=== PATIENT | female | born 1985 | race Caucasian/White ===

== ENCOUNTER 2016-11-13 16:19 | Emergency (ER) | payer OTHER ==
[~2016-11-13] VITALS: Ht 160 cm; Wt 117.9 kg
[2016-11-13 16:22] VITALS: BP 163/84
--- NOTE | 2016-11-13 16:39 | ED NECK/BACK PAIN COMPLAINT ---
History of Present Illness General Chief Complaint: Low Back Pain/Injury Stated Complaint: R SIDED GROIN/BACK PAIN Source: patient Exam Limitations: no limitations Vital Signs & Intake/Output Vital Signs & Intake/Output Vital Signs Date Time Temp Pulse Resp B/P Pulse O2 O2 Flow FiO2 Ox Delivery Rate 11/13 1622 96.2 106 20 163/84 96 Room Air Allergies Coded Allergies: MDX - Ciprofloxacin (From [facility]) (UPSET STOMACH 12/12/12) Reconcile Medications Cyclobenzaprine HCl 10 MG TABLET 1 TAB PO TID PRN MUSCLE RELAXANT MAY CAUSE DROWSINESS Tramadol HCl 50 MG TABLET 1-2 TAB PO Q6 PRN pain Triage Note: PT TO ED C/O LOWER BACK PAIN RADIATING TO RIGHT GROIN X 3 WEEKS. DENIES ANY OBVIOUS RECENT INJURY. HAS BEEN TAKING MOTRIN WITH SOME RELIEF. DENIES S/S. PAIN IS WORSE WITH STANDING. Triage Nurses Notes Reviewed? yes : No Patient currently breastfeeds: No HPI: Patient is a 31-year-old female presents complaining of right low back pain radiating into her right groin and right lower extremity. Pain onset 3 weeks ago. Patient has had similar episodes in the past, her episodes normally improve after approximately 3 days but this pain has persisted. Patient reports that his episodes began after [place] one year [place]. Patient was seen at [facility] yesterday, had x-rays was placed on anti-inflammatories (patient is unsure of the name of the medication) and was scheduled for follow-up on November 24. Patient reports she has been taking the anti-inflammatory medication with no improvement. Pain is a pulling sensation improves with sitting, worsens with movement. Pain is currently moderate to severe. Patient denies dysuria, hematuria, numbness, weakness, recent falls or injuries (CHIKIS ZENG) Past History Travel History Traveled to [place] past 21 day No Medical History Any Pertinent Medical History? see below for history Cardiovascular: hypertension Surgical History Surgical History: non-contributory Psychosocial History What is your primary language Scottish Tobacco Use: Current Daily Use Daily Tobacco Use Amount/Type: => 5 Cigarettes daily ETOH Use: denies use Illicit Drug Use: denies illicit drug use Family History Hx Contributory? No (CHIKIS ZENG) Review of Systems Review of Systems Constitutional: Denies: chills, fever. Eyes: Reports: no symptoms. Ears, Nose, Throat, Mouth: Reports: no symptoms. Respiratory: Denies: cough, short of breath. Cardiovascular: Denies: chest pain. Gastrointestinal/Abdominal: Denies: abdominal pain, other (no incontinence). Musculoskeletal: Reports: see HPI. Skin: Reports: no symptoms. Neurological/Psychological: Denies: numbness, paresthesia. (CHIKIS ZENG) Physical Exam Physical Exam General Appearance: well developed/nourished, alert, awake Head: atraumatic, normal appearance Eyes: Bilateral: normal appearance. Ears, Nose, Throat, Mouth: hearing grossly normal, moist mucous membrane Neck: normal inspection, supple, full range of motion Respiratory: normal breath sounds, no respiratory distress, lungs clear Cardiovascular: tachycardia (regular rhythm, no murmur) Peripheral Pulses: 2+ dorsalis pedis (R), 2+ dorsalis pedis (L) Gastrointestinal: soft, non-tender Back: normal inspection, normal range of motion, no vertebral tenderness, right paraspinal tenderness with mild spasm of the right paraspinal lumbar muscles. Extremities: non-tender, normal range of motion Straight Leg Raising: Right: Negative. Left: Negative. DTR: Patellar: 2: L4 Right, L4 Left. Achilles: 2: S1 Right, S1 Left. Neurologic/Psych: no motor/sensory deficits, awake, alert, oriented x 3, normal gait, normal mood/affect Skin: intact, normal color, warm/dry (CHIKIS ZENG) Progress Differential Diagnosis: cauda equina syn, herniated disc, myofascial strain, pyelo/UTI, sciatica, spinal cord inj, T/L spine injury, ureterolithiasis Plan of Care: Patient had x-rays yesterday at [facility]. No acute red flags on exam or by history. Labs and further imaging deferred. (CHIKIS ZENG) Departure Departure Time of Disposition: 1651 Disposition: HOME OR SELF CARE Condition: Stable Clinical Impression Primary Impression: Sciatica of right side Referrals: VIOLETTA GARCÍA MD (PCP/Family) Additional Instructions: Follow-up with orthopedic sports medicine on November 24 as previously scheduled. If your symptoms are not improving then call them for an earlier appointment. Continue the anti-inflammatory medication that was prescribed to you yesterday. You may also follow-up with your primary care doctor for further evaluation. Return to the emergency department if numbness, weakness, pain uncontrollable, incontinence, fevers, or worsening of symptoms. Departure Forms: Customer Survey General Discharge Information Prescriptions: Current Visit Scripts Cyclobenzaprine HCl 1 TAB PO TID PRN MUSCLE RELAXANT #20 TAB MAY CAUSE DROWSINESS Tramadol HCl 1-2 TAB PO Q6 PRN pain #15 TAB (GERMAN HEALY,CHIKIS) PA/[employer] SALESPERSON Co-Sign Statement Statement: ED Attending supervision documentation- [X] I saw and evaluated the patient. I have also reviewed all the pertinent lab results and diagnostic results. I agree with the findings and the plan of care as documented in the PA's/[employer] SALESPERSON's documentation. [] I have reviewed the ED Record and agree with the PA's/[employer] SALESPERSON's documentation. [] Additions or exceptions (if any) to the PAs/M[employer] SALESPERSON's note and plan are summarized below: [] (NAKUL GARCIA DO
[2016-11-13] MEDS ORDERED: TRAMADOL HCL50 M1 PO (16:54)
[2016-11-13] MEDS ORDERED: CYCLOBENZAPRINE10 M1 PO (16:54)
== END 2016-11-13 17:03 ==
LOC: ERH 16:19
DX: M54.41 Lumbago with sciatica, right side (principal)